=== PATIENT | male | born 1960 | race Caucasian/White ===

== ENCOUNTER → 2019-02-07 | Outpatient (CLI) | payer OTHER ==
--- NOTE | 2019-02-07 11:06 | PCVCIMAG ---
APPROVED REPORT Study performed: 02/07/2019 09:56:22 EXAM: Comprehensive 2D, Doppler, and color-flow Echocardiogram Patient Location: Echo lab Status: routine BSA: 1.98 HR: 61 bpmBP: 130/90 mmHg Rhythm: RBBB Other Information Study Quality: Technically Difficult Risk Factors: Cardiac Risk Factors: HTN, Hyperlipidemia, Smoking Indications CAD Cardiomyopathy Hypertension/HDD CABG, Mitral Valve Repair 2D Dimensions IVSd: 15.85 (7-11mm)LVOT Diam: 21.22 (18-24mm) LVDd: 54.68 mm PWd: 11.85 (7-11mm)Ascending Ao: 33.06 (22-36mm) LVDs: 44.98 (25-40mm) Left Atrium: 51.19 (27-40mm) Aortic Root: 28.75 mm LV Single Plane 4CH: 45.24 % LV Single Plane 2CH: 32.00 % Volumes Left Atrial Volume (Systole) Single Plane 4CH: 75.97 mLSingle Plane 2CH: 61.32 mL LA ESV Index: 37.00 mL/m2 Aortic Valve AoV Peak Jaime.: 1.26 m/s AO Peak Gr.: 6.35 mmHgLVOT Max P.55 mmHg LVOT Max V: 0.94 m/s VINOD Vmax: 2.64 cm2 Mitral Valve MV Peak Gr.: 8.97 mmHg MV Mean Gr.: 2.69 mmHg MV Decel. Time: 371.44 ms MV Max Jaime.: 1.50 m/s MV Mean Jaime.: 0.75 m/s MV VTI: 406.33 mm MV PHT: 98.53 ms MVA (PHT): 2.23 cm2 IVRT: 131.49 ms TDI Medial E' Jaime.: 0.08 m/s Lateral E' Jaime.: 0.07 m/s Pulmonary Valve PV Peak Gr.: 5.82 mmHg Pulmonary Vein P Vein S: 0.38 m/sP Vein A: 0.27 m/s P Vein D: 0.37 m/sP Vein A Dur.: 96.9 msec P Vein S/D Ratio: 1.03 Left Ventricle The left ventricle is normal size. Inferior, inferolateral, and inferoseptal akinesis. There is normal left ventricular wall thickness. Left ventricular systolic function is moderately decreased. LVEF is 40-45%. This study is not technically sufficient to allow evaluation of the LV diastolic function. Right Ventricle The right ventricle is normal size. The right ventricular systolic function is normal. Atria Left atrium is dilated. The right atrium size is normal. Aortic Valve The aortic valve is normal in structure. No aortic regurgitation is present. There is no aortic valvular stenosis. Mitral Valve #23 Carmelina-Mayo annuloplasty ring Moderate mitral regurgitation. No evidence of mitral valve stenosis. Tricuspid Valve The tricuspid valve is normal in structure. There is no tricuspid valve regurgitation noted. Pulmonic Valve The pulmonary valve is normal in structure. There is no pulmonic valvular regurgitation. Great Vessels The aortic root is normal in size. IVC is normal in size and collapses >50% with inspiration. Pericardium There is no pericardial effusion. <Conclusion> Left ventricular systolic function is moderately decreased. Inferior, inferolateral, and inferoseptal akinesis. LVEF is 40-45%. Left atrium is dilated. The aortic valve is normal in structure. No aortic regurgitation or stenosis #23 Carmelina-Mayo annuloplasty ring. Moderate mitral regurgitation Pulmonary artery pressure could not be reliably ascertained. There is no pericardial effusion.
--- NOTE | 2019-02-07 11:09 | PCVCIMAG ---
APPROVED REPORT Study performed: 02/07/2019 10:16:07 Exam: Stress Echocardiogram Indication: Hyperlipidemia, CABG, Cardiomyopathy Patient Location: Echo lab Stress Nurse: Rica Medina RN Status: routine Ht: 5 ft 6 in BP: 130/90 mmHg Rhythm: NSR Medical History Medical History: CAD s/p CABG, Mitral Valve repair Procedure The patient underwent an Exercise Stress Test using the Yusuf Protocol. Blood pressure, heart rate, and EKG were monitored. An Echocardiogram was performed by metal technician in four stages in quad fashion. At peak stress, four selected images were obtained and placed side by side with resting images for comparison. Stress Test Details Stress Test: Exercise stress testing was performed using a Yusuf protocol. HR Resting HR: 66 bpmMax Heart Rate (APMHR): 160 bpm Max HR Achieved: 144 bpmTarget HR (85% APMHR): 136 bpm % of APMHR: 90 Recovery HR: 77 bpm HR response to stress: Normal HR response to stress BP Resting BP: 130/90 mmHg Max BP: 182/80 mmHg Recovery BP: 128/70 mmHg BP response to stress: Normal blood pressure response to stress. ECG Resting ECG: Sinus Rhythm, RBBB, inferior infarct, old Stress ECG: Sinus Rhythm Maximum ST Deviation: 0 mm Arrhythmia: APC's, PVC's Recovery ECG: Sinus Rhythm, RBBB, inferior infarct, old Recovery ST Change: Normal Recovery ST Deviation: 0 mm Recovery Arrhythmia: VPC Clinical Reason for Termination: Maximal effort Exercise duration: 10 min sec Highest Stage Achieved: Stage 3: 3.4 mph at 14% grade. Exercise capacity: 13.40 METs Overall Exercise Capacity for Age: Good Angina Score: None Stress ECG Conclusion Clinical: Non-ischemic ECG: Non-ischemic Willson Treadmill Score is 10.0 which is Low risk. Pre-Stress Echo The resting Echocardiogram showed abnormal left ventricular contractility with an estimated Ejection Fraction of about 40-45%. Inferior, inferolateral, and inferoseptal wall akinesis. Post-Stress Echo The stress Echocardiogram showed abnormal left ventricular contractility with an estimated Ejection Fraction of about 50%. Inferior, inferolateral, and inferoseptal wall akinesis. No new regional wall motion abnormalities. Conclusion Clinical Response: Non-ischemic Exercise Capacity: Average Stress ECG Response: Non-ischemic Stress Echo Images: Non-ischemic Normal stress echocardiogram with maximal exercise stress. Moderate left ventricular dysfunction with inferior, inferolateral, inferoseptal wall akinesis. Ejection fraction 40-45% Other Information Study Quality: Technically Difficult <Conclusion> Normal stress echocardiogram with maximal exercise stress. Moderate left ventricular dysfunction with inferior, inferolateral, inferoseptal wall akinesis. Ejection fraction 40-45%
== END | disposition home or self-care (01) ==
LOC: PCVCIMAG 09:40
PROVIDERS: ATTEND Internal Medicine
DX: I34.0 Nonrheumatic mitral (valve) insufficiency (principal); I25.10 Atherosclerotic heart disease of native coronary artery without angina pectoris; I42.9 Cardiomyopathy, unspecified; I10 Essential (primary) hypertension
CPT/HCPCS: 93306; 93351